=== PATIENT | female | born 1970 | race Caucasian/White ===

== ENCOUNTER 2020-03-22 00:51 | Emergency (ER) | payer OTHER ==
[~2020-03-22] VITALS: Ht 152.4 cm; Wt 71.7 kg
[2020-03-22 01:10] VITALS: BP 146/89; Ht 152.4 cm; Wt 71.7 kg
== END 2020-03-22 01:54 | disposition home or self-care (01) ==
LOC: ED 00:51
DX: F41.9 Anxiety disorder, unspecified (principal); F32.9 Major depressive disorder, single episode, unspecified

== ENCOUNTER 2020-04-23 23:53 | Emergency (ER) | payer OTHER ==
[~2020-04-23] VITALS: Ht 157.5 cm; Wt 70.8 kg
[2020-04-24 00:03] VITALS: Ht 157.5 cm; Wt 70.8 kg
[2020-04-24 01:51] VITALS: BP 133/69
== END 2020-04-24 01:50 | disposition home or self-care (01) ==
LOC: ED 23:53
DX: F41.9 Anxiety disorder, unspecified (principal)
CPT/HCPCS: Q0092